=== PATIENT | male | born 1995 | race Caucasian/White ===

== ENCOUNTER 2018-03-31 01:47 | Emergency (ER) | payer OTHER | END 2018-03-31 05:26 | disposition home or self-care (01) | LOC: M ED 01:47 | DX: T14.8XXA Other injury of unspecified body region, initial encounter (principal); V86.96XA Unspecified occupant of dirt bike or motor/cross bike injured in nontraffic accident, initial encounter; Y92.89 Other specified places as the place of occurrence of the external cause; F17.210 Nicotine dependence, cigarettes, uncomplicated | CPT/HCPCS: 72170 ==